=== PATIENT | female | born 1950 | race Asian ===

== ENCOUNTER 2018-02-21 20:59 | Emergency (ER) | payer MEDICARE, OTHER ==
[~2018-02-21] VITALS: Ht 152.4 cm; Wt 63.6 kg
[2018-02-21] MEDS ORDERED: ADV250 IH (21:12)
[2018-02-21] MEDS ORDERED: INSLAN SQ (21:12)
[2018-02-21] MEDS ORDERED: METF-960 PO (21:12)
[2018-02-21] MEDS ORDERED: BENA20TA10 PO (21:12)
[2018-02-21] MEDS ORDERED: ALBU8HFA IH (21:12)
[2018-02-21] MEDS ORDERED: INSU100V9 SQ (21:12)
[2018-02-21 22:27] LABS: GLUCOSE,POINT OF CARE 123 MG/DL (70-110)
[2018-02-21 22:38] LABS: CALCIUM, TOTAL 8.7 mg/dL (8.8-10.5); CREATININE 0.93 mg/dL (0.60-1.30); POTASSIUM 3.8 mmol/L (3.5-5.1)
[2018-02-21 23:21] VITALS: BP 134/85
== END 2018-02-21 23:23 | disposition home or self-care (01) ==
LOC: EMS 20:59
DX: E11.9 Type 2 diabetes mellitus without complications (principal); F41.9 Anxiety disorder, unspecified; J45.909 Unspecified asthma, uncomplicated; Z90.710 Acquired absence of both cervix and uterus; Z88.6 Allergy status to analgesic agent; Z88.1 Allergy status to other antibiotic agents; Z79.4 Long term (current) use of insulin; Z79.84 Long term (current) use of oral hypoglycemic drugs
CPT/HCPCS: 82948